=== PATIENT | male | born 1990 | race Caucasian/White ===

== ENCOUNTER 2018-06-18 06:02 | Day surgery (SDC) | payer BC ==
[~2018-06-18 06:02] MED LIST: CEFAZOLIN 2 GM/50 ML (PMX) 50 ML IVPB; SOD CHLORIDE 0.9% 1,000 ML IV
[2018-06-18] MEDS ORDERED: DESFLURANE 15 MIN (07:00)
[2018-06-18] MEDS ORDERED: NEOSTIGMINE 3 MG/3 ML SYRINGE (09:46)
[2018-06-18] MEDS ORDERED: ROCURONIUM 50 MG INJ (09:46)
[2018-06-18] MEDS ORDERED: PROPOFOL 20 ML (09:46)
[2018-06-18] MEDS ORDERED: GLYCOPYRROLATE 0.4 MG INJ (09:46)
[2018-06-18] MEDS ORDERED: CEFAZOLIN 1 GM INJ (09:46)
[2018-06-18] MEDS ORDERED: ONDANSETRON 4 MG INJ (09:49)
[2018-06-18] MEDS ORDERED: MIDAZOLAM 1 MG/ML 2 ML INJ (09:49)
[2018-06-18] MEDS ORDERED: FENTAnyl 50 MCG/ML VIAL (09:49)
[2018-06-18] MEDS ORDERED: DEXAMETHASONE 4 MG/ML 5 ML INJ (09:49)
[2018-06-18] MEDS: BUPIVACAINE 0.25% (MPF) 30 ML INJ (10:42)
[2018-06-18] MEDS: LIDOCAINE 1%/EPI (1:100,000) (MDV) 20 ML (10:42)
== END 2018-06-18 12:21 | disposition home or self-care (01) ==
LOC: SDS 06:02
DX: L05.91 Pilonidal cyst without abscess (principal)
CPT/HCPCS: 11771; 71045; 88304